=== PATIENT | male | born 1935 | race Caucasian/White ===

== ENCOUNTER 2021-03-23 10:47 | Outpatient (CLI) | payer MEDICARE, BC ==
[2021-03-23 11:40] LABS: BASOPHILS % (AUTO) 0.9 % (0-1); EOSINOPHILS # (AUTO) 0.2 X10'3 (0-0.9); EOSINOPHILS % (AUTO) 3.3 % (0-6); HEMATOCRIT 38.7 % (42.0-52.0); HEMOGLOBIN 12.6 g/dl (14.0-17.9); LYMPHOCYTES # (AUTO) 0.7 X10'3 (1.1-4.8); LYMPHOCYTES % (AUTO) 12.9 % (21-51); MEAN CORPUSCULAR HEMOGLOBIN 29.8 PG (27.0-31.0); MEAN CORPUSCULAR HGB CONC 32.7 g/dL (33.0-36.5); MEAN CORPUSCULAR VOLUME 91.1 FL (78-98); MONOCYTES # (AUTO) 0.6 X10'3 (0-0.9); MONOCYTES % (AUTO) 11.6 % (2-12); NEUTROPHILS # (AUTO) 3.8 X10'3 (1.8-7.7); NEUTROPHILS % (AUTO) 71.3 % (42-75); PLATELET COUNT 138 X10'3 (140-440); RED BLOOD COUNT 4.25 X10'6 (4.70-6.10); RED CELL DISTRIBUTION WIDTH 14.2 % (11.5-14.5); WHITE BLOOD COUNT 5.4 X10'3 (4.5-11.0)
[2021-03-23 11:53] LABS: PARTIAL THROMBOPLASTIN TIME 27 SECONDS (22-32)
[2021-03-23 11:58] LABS: ALANINE AMINOTRANSFERASE 27 U/L (12-78); ALBUMIN 3.5 G/DL (3.4-5.0); ALKALINE PHOSPHATASE 154 IU/L (46-116); ANION GAP 7 (8-16); ASPARTATE AMINO TRANSFERASE 21 U/L (10-37); BILIRUBIN,TOTAL 0.5 MG/DL (0.1-1.0); BLOOD UREA NITROGEN 17 MG/DL (7-18); BUN/CREATININE RATIO 13.9 (5.4-32.0); CALCIUM 8.9 MG/DL (8.5-10.1); CHLORIDE 107 MMOL/L (99-107); CREATININE 1.22 MG/DL (0.60-1.10); GLUCOSE 85 MG/DL (70-104); POTASSIUM 4.2 MMOL/L (3.5-5.1); SODIUM 146 MMOL/L (135-145); TOTAL CARBON DIOXIDE 32.3 MMOL/L (24-32); eGFR 57 ML/MIN
[2021-03-23] MEDS ORDERED: IODIXANOL 320 MG/ML INFUS..BTL 100ML IV ONE (12:20)
[2021-03-23] MEDS ORDERED: IODIXANOL 320 MG/ML INFUS..BTL 50ML IV ONE (12:20)
== END 2021-03-23 23:59 | disposition home or self-care (01) ==
LOC: EDBD → VAS 10:47
PROVIDERS: ATTEND Internal Medicine Cardiovascular Disease
DX: R16.0 Hepatomegaly, not elsewhere classified (principal); K76.0 Fatty (change of) liver, not elsewhere classified; I70.1 Atherosclerosis of renal artery; M19.90 Unspecified osteoarthritis, unspecified site; I51.7 Cardiomegaly; I35.8 Other nonrheumatic aortic valve disorders; I25.10 Atherosclerotic heart disease of native coronary artery without angina pectoris
CPT/HCPCS: 36415; 71046; 71275; 74174; 80053; 85025; 85610; 85730; 93880; Q9967

== ENCOUNTER 2021-06-10 15:18 | Outpatient (CLI) | payer MEDICARE, BC ==
[~2021-06-10 15:18] MED LIST: APIX5TAB3 PO; ASPI-529 PO; ATOR40TA72 PO; CARV6.253 PO; CHOL20004 PO; DICL100G30 TOP; DICL50TA8 PO; DOCU100C40 PO; DONE10TA44 PO; FLO0.4C PO; FLUT30CR TOP; FURO20TA4 PO; GABA800T11 PO; LEVE500T PO; LIDO700A47 TOP; LISI10TA27 PO; PANT-47 PO; POTA20TA19 PO; TETR-58 PO; VITAMIN B; VITAMIN E
== END 2021-06-10 23:59 | disposition home or self-care (01) ==
LOC: TAVR 15:18
PROVIDERS: ATTEND Internal Medicine Cardiovascular Disease
DX: I34.0 Nonrheumatic mitral (valve) insufficiency (principal); Z95.2 Presence of prosthetic heart valve; Z48.812 Encounter for surgical aftercare following surgery on the circulatory system
CPT/HCPCS: 93306